=== PATIENT | male | born 1990 | race African-American/Black ===

== ENCOUNTER 2017-08-17 08:26 | Emergency (ER) | payer MEDICAID, OTHER ==
[~2017-08-17] VITALS: Ht 172.7 cm; Wt 63.5 kg
[2017-08-17 08:38] VITALS: BP 105/67
== END 2017-08-17 09:10 | disposition home or self-care (01) ==
LOC: ER 08:26
DX: J02.9 Acute pharyngitis, unspecified (principal); F12.10 Cannabis abuse, uncomplicated